=== PATIENT | female | born 1960 | race Caucasian/White ===

== ENCOUNTER 2019-07-05 09:15 | Emergency (ER) | payer OTHER ==
[~2019-07-05] VITALS: Ht 170.2 cm; Wt 117.9 kg
[2019-07-05] MEDS ORDERED: COZAAR 25 MG TA25 M1 PO (09:35)
[2019-07-05] MEDS ORDERED: VITAMIN D31250 MCG PO (09:35)
[2019-07-05] MEDS ORDERED: VENLAFAXINE H37.5 MG PO (09:35)
[2019-07-05] MEDS ORDERED: DOXYCYCLINE 10100 MG PO (10:49)
[2019-07-05 10:55] LABS: URINE BLOOD NEGATIVE (Negative); URINE CLARITY CLEAR; URINE COLOR YELLOW; URINE GLUCOSE-RANDOM NEGATIVE (Negative); URINE KETONES NEGATIVE (Negative); URINE LEUKOCYTES-REFLEX NEGATIVE (Negative); URINE NITRITE-REFLEX NEGATIVE (Negative); URINE PROTEIN NEGATIVE (Negative); URINE SPECIFIC GRAVITY 1.025 (1.005-1.030); URINE UROBILINOGEN 0.2 E.U./dl (0.2-1.0)
[2019-07-05 10:56] LABS: URINE BILIRUBIN 1+ (Negative)
[2019-07-05 10:57] LABS: ICTOTEST (BILI CONFIRMATORY) Negative (Negative)
[2019-07-05] MEDS ORDERED: TYLENOL WITH CO1 TA1 PO (11:01)
[2019-07-05 11:02] VITALS: BP 145/70
== END 2019-07-05 11:05 | disposition home or self-care (01) ==
LOC: M.ERS 09:15
PROVIDERS: Physician Assistant
DX: N76.4 Abscess of vulva (principal); I10 Essential (primary) hypertension; G47.30 Sleep apnea, unspecified; Z88.2 Allergy status to sulfonamides; Z88.1 Allergy status to other antibiotic agents